=== PATIENT | male | born 1995 | race Caucasian/White ===

== ENCOUNTER 2016-06-13 12:30 | Inpatient (IN) | payer OTHER ==
[~2016-06-13] VITALS: Ht 190.5 cm; Wt 108.9 kg
[2016-06-15 18:20] LABS: *AMPHETAMINE, URINE NEGATIVE (NEGATIVE); *BARBITURATE, URINE NEGATIVE (NEGATIVE); *CANNABINOID, URINE POSITIVE (NEGATIVE); *COCCAINE, URINE POSITIVE (NEGATIVE); *OPIATE, URINE NEGATIVE (NEGATIVE); *PHENCYCLIDINE SCREEN,URINE NEGATIVE (NEGATIVE)
[2016-06-15 18:31] VITALS: BP 126/79
[2016-06-15] MEDS ORDERED: DIAZEPAM 10 MG TABLET PO STA (18:32)
[2016-06-15] MEDS ORDERED: CLONIDINE HCL 0.1 MG TABLET PO PRN (18:45)
[2016-06-15] MEDS ORDERED: MAG HYDROX/AL HYDROX/SIMETH 30 ML LIQUID UDC PO PRN (18:45)
[2016-06-15] MEDS ORDERED: ONDANSETRON 4 MG/2 ML VIAL IM PRN (18:45)
[2016-06-15] MEDS ORDERED: DICYCLOMINE HCL 20 MG TABLET PO PRN (18:45)
[2016-06-15] MEDS ORDERED: LORAZEPAM 2 MG/1 ML VIAL IM PRN (18:45)
[2016-06-15] MEDS ORDERED: MAGNESIUM HYDROXIDE 30 ML LIQUID UDC PO PRN (18:45)
[2016-06-15] MEDS ORDERED: IBUPROFEN 600 MG TABLET PO PRN (18:45)
[2016-06-15] MEDS ORDERED: LOPERAMIDE HCL 2 MG CAPSULE PO PRN ×2 (18:45)
[2016-06-15] MEDS ORDERED: DIAZEPAM 10 MG TABLET PO PRN ×4 (18:45→19:45)
[2016-06-15] MEDS ORDERED: HYDROXYZINE PAMOATE 25 MG CAPSULE PO PRN (18:45)
[2016-06-15] MEDS ORDERED: diphenhydrAMINE 50 MG CAPSULE PO PRN (18:45)
[2016-06-15] MEDS ORDERED: ONDANSETRON ODT 4 MG TAB.RAPDIS SL PRN (18:45)
[2016-06-15] MEDS ORDERED: DIAZEPAM 5 MG TABLET PO PRN ×2 (18:45→19:45)
[2016-06-15 20:00] VITALS: BP 128/79
[2016-06-15] MEDS ORDERED: DIAZEPAM 10 MG TABLET PO ONE (20:00)
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
[2016-06-15] MEDS ORDERED: BUPRENORPHINE HCL 2 MG TAB.SUBL SL PRN (20:15)
[2016-06-15] MEDS ORDERED: DIAZEPAM 10 MG TABLET ONE ×2 (20:15→23:31)
[2016-06-15] MEDS ORDERED: METHOCARBAMOL 750 MG TABLET PO PRN (20:15)
--- NOTE | 2016-06-15 20:17 | NUR ---
One Time Valium 20mg x1 CIWA 16 Pt presents with nausea, visible tremors, sweat/clammy skin noted, runny nose, agitation, reports pin/needles sensations, reports sensitivity to light and light headedness. Valium 20mg x1 administered as ordered. Safety measures in place, sitter at bedside, will continue to monitor.
[2016-06-15 20:25] LABS: BASOPHILS % (AUTO) 0.5 % (0.0-2.0); EOSINOPHILS # (AUTO) 0.3 K/uL (0.0-0.7); EOSINOPHILS % (AUTO) 4.1 % (0.0-7.0); HEMATOCRIT 42.7 % (40.0-50.0); HEMOGLOBIN 14.1 g/dL (14.0-18.0); LYMPHOCYTES # (AUTO) 2.7 K/uL (0.8-4.8); LYMPHOCYTES % (AUTO) 42.1 % (20.5-51.5); MEAN CORPUSCULAR HEMOGLOBIN 28.3 uug (27.0-31.0); MEAN CORPUSCULAR HGB CONC 33 g/dL (32.0-37.0); MEAN CORPUSCULAR VOLUME 85.9 fL (82.0-92.0); MONOCYTES # (AUTO) 0.5 K/uL (0.1-1.30); MONOCYTES % (AUTO) 7.1 % (0.0-11.0); NEUTROPHILS % (AUTO) 46.2 % (38.5-71.5); PLATELET COUNT (AUTO) 193 K/uL (150-450); RED BLOOD CELL COUNT(AUTO) 4.97 MIL/uL (4.70-6.10); RED CELL DISTRIBUTION WIDTH 12.1 % (11.5-14.5); WHITE BLOOD COUNT (AUTO) 6.5 K/uL (4.0-11.2)
[2016-06-15] MEDS ORDERED: THIAMINE HCL 200 MG/2 ML VIAL IM ONE (20:30)
[2016-06-15 20:35] LABS: ALANINE AMINOTRANSFERASE 18 U/L (16-63); ALBUMIN 3.9 g/dL (3.4-5.0); ALKALINE PHOSPHATASE 42 U/L (50-136); ASPARTATE AMINOTRANSFERASE 10 U/L (15-37); BILIRUBIN,TOTAL 0.5 mg/dL (0.2-1.0); CALCIUM 8.7 mg/dL (8.5-10.1); CARBON DIOXIDE 31 mmol/L (21-32); CHLORIDE 107 mmol/L (98-107); CREATININE 1.2 mg/dL (0.6-1.3); GFR 76 mL/min (>60); GLUCOSE 92 mg/dL (74-106); MAGNESIUM 1.9 mg/dL (1.8-2.4); POTASSIUM 3.7 mmol/L (3.5-5.1); SODIUM SERUM 143 mmol/L (136-145); TOTAL PROTEIN, SERUM 6.5 g/dL (6.4-8.2); UREA NITROGEN, BLOOD 18 mg/dL (7-18)
[2016-06-15] MEDS ORDERED: PREGABALIN 25 MG CAPSULE ONE (20:41)
[2016-06-15 20:46] LABS: THYROID STIMULATING HORMONE 1.446 mIU/mL (0.358-3.740)
[2016-06-15 20:57] LABS: ETHANOL < 3 MG/DL (0-0)
[2016-06-15] MEDS ORDERED: PREGABALIN 100 MG CAPSULE PO SCH (21:00)
[2016-06-15] MEDS ORDERED: GABAPENTIN 300 MG CAPSULE PO SCH (21:00)
[2016-06-15 21:06] LABS: HIV-1 p24 ANTIGEN NON REACTIVE (NONREACTIVE); HIV-1/2 ANTIBODY NON REACTIVE (NONREACTIVE)
--- NOTE | 2016-06-15 21:17 | NUR ---
Reassessment of One time - Valium 20mg x1 Upon reassessment, pt states, I still have aches all over by my body. Skin remains sweaty/clammy. Pt states, I just want to go smoke. Safety measures in place, Sitter with pt, Will continue to monitor.
--- NOTE | 2016-06-15 21:45 | NUR ---
LYRICA 150mg Lyrica 150mg ordered (1.5 capsules). Unable to waste half of a capsule, Dr. Tompkins notified. ordered to use 2 capsules of 100mg for 200mg total. Administered as ordered.
--- NOTE | 2016-06-15 23:25 | NUR ---
PRN VALIUM 20MG & SUBUTEX 4MG CIWA 17, COWS 14 Pt presents with muscle aches, visible tremors, sensitivity to light, runny nose/tearing, pin/needles sensations, agitation, skin noted to be flushed/clammy. Valium 20mg PRN and Subutex 4mg PRN administered. Safety measures in place, sitter at bedside, Will continue to monitor.
[2016-06-15] MEDS ORDERED: BUPRENORPHINE HCL 2 MG TAB.SUBL SL ONE (23:32)
[2016-06-16] VITALS: BP 120/73
--- NOTE | 2016-06-16 | NUR ---
Vital Signs BP 120/73, pulse 86, SpO2 100%, respirations 17, temp 97.7, no reports of pain CIWA/COWS assessment deferred d/t pt sleeping, to assess while pt is awake as ordered. Safety measures in place, sitter at bedside. Will continue to monitor.
--- NOTE | 2016-06-16 00:25 | NUR ---
PRN VALIUM 20MG & SUBUTEX 4MG Reassessment Assessment of COWS/CIWA deferred d/t pt sleeping, to assess while pt is awake as ordered. Respirations unlabored, Sitter at bed side, Safety measures in place, Will continue to monitor.
[2016-06-16] MEDS ORDERED: ALPR2TAB7 PO (03:12)
[2016-06-16] MEDS ORDERED: TRAZ-147 PO (03:12)
[2016-06-16] MEDS ORDERED: ALBU18HF2 IH (03:12)
[2016-06-16 04:00] VITALS: BP 105/52
--- NOTE | 2016-06-16 04:00 | NUR ---
Vital Signs BP 105/52, pulse 69, SpO2 100%, respirations 16, temp 98, no reports of pain CIWA/COWS assessment deferred d/t pt sleeping, to assess while pt is awake as ordered. Safety measures in place, sitter at bedside. Will continue to monitor.
--- NOTE | 2016-06-16 07:00 | NUR ---
End of Shift Pt is a 21 year old male admitted on 06/15/2016 for ETOH/benzo/opiate dependence, placed on 7 day Valium and 7 day Subutex taper. Pt reported using Catina 750ml/daily, Xanax 20mg/daily, Klonopin 10mg/daily, Suboxone SL 16mg/daily, Cocaine 3-5g/daily via smoke/injection, and Marijuana 7g/daily via smoke. Pt is on 1:1 d/t high risk of seizures. During shift, Valium 20mg x1 administered at 2017. At 2324, pt presented with muscle aches, visible tremors, sensitivity to light, runny nose/tearing, pin/needles sensations, agitation, skin noted to be flushed/clammy - Valium 20mg PRN and Subutex 4mg administered d/t CIWA 17 and COWS 14. Upon reassessment, pt was sleeping to assess while pt is awake. Pt refused Vitamin B1 inj, No seizure activity during shift, VS stable, Valium and Subutex tapers scheduled to be started today. Pt slept for 6 hours, intake of 1091 ml PO and voids x3. Safety measures in place, call light within reach, side rails up x2, bed locked and in low position. Endorsed to day shift nurse.
--- NOTE | 2016-06-16 07:55 | NUR ---
START OF SHIFT: RECEIVED PT A/ O X 4. HE C/O RESTLESSNESS, ANXIETY, FATIGUE,MILD NAUSEA AND IRRITABILITY. HE C/O BODY ACHES AND STATES HE SLEPT RESTLESS 6 HRS LAST NIGHT. VALIUM/SUBUTEX TAPER IN PROGRESS. ENCOURAGED INCREASED FLUIDS. SZ PRECAUTIONS NOTED. 1:1 SITTER AT BEDSIDE. WILL CONTINUE TO MONITOR AND MANAGE S/S OF WD.
[2016-06-16 08:00] VITALS: BP 121/82
[2016-06-16] MEDS ORDERED: TUBERCULIN,PURIF.PROT.DERIV. 5 TU/0.1 ML TEST ID ONE (09:00)
[2016-06-16] MEDS ORDERED: 5 DAY TAPER BUPRENORPHINE -SERENITY PROTOCOL SL PRN (09:00)
[2016-06-16] MEDS ORDERED: DIAZEPAM 10 MG TABLET PO SCH (09:00)
[2016-06-16] MEDS: FOLIC ACID 1 MG TABLET PO SCH (09:44)
[2016-06-16] MEDS: THIAMINE HCL 100 MG TABLET PO SCH (09:44)
[2016-06-16] MEDS: MULTIVITAMINS,THERAPEUTIC TABLET PO SCH (09:44)
[2016-06-16] MEDS: DIAZEPAM 10 MG TABLET PO SCH ×4 (09:45→21:02)
[2016-06-16] MEDS: BUPRENORPHINE HCL 2 MG TAB.SUBL SL SCH ×4 (09:46→21:02)
[2016-06-16 12:00] VITALS: BP 125/86
[2016-06-16] MEDS ORDERED: ALBUTEROL SULFATE 8 GM HFA.AER.AD IH PRN (12:45)
[2016-06-16] MEDS ORDERED: PATIENT MAY USE OWN MED- MD OK INH PRN (13:30)
[2016-06-16] MEDS ORDERED: PREGABALIN 25 MG CAPSULE PO SCH (15:00)
[2016-06-16] MEDS: PREGABALIN 100 MG CAPSULE PO SCH ×2 (15:08→21:02)
[2016-06-16 16:00] VITALS: BP 112/60
[2016-06-16] MEDS: ACETAMINOPHEN 325 MG TABLET PO PRN (17:05)
[2016-06-16] MEDS: MIRALAX 17 GM POWD.PACK PO PRN (17:06)
[2016-06-16] MEDS: BACLOFEN 20 MG TABLET PO PRN (17:29)
--- NOTE | 2016-06-16 17:33 | NUR ---
PRN MIRALAX,TYLENOL AND BACLOFEN GIVEN FOR REPORTED H/A 5/10 ON SCALE,BODY ACHES AND CONSTIPATION X 2 DAYS. WILL MONITOR EFFECTIVENESS.
--- NOTE | 2016-06-16 18:05 | NUR ---
PT STATES PRN BACLOFEN,AND TYLENOL EFFECTIVE FOR BODY ACHES. HE STATES HE IS STILL CONSTIPATED.
--- NOTE | 2016-06-16 19:19 | NUR ---
END OF SHIFT: PT CONTINUES ON EXTENDED VALIUM/SUBUTEX TAPER. HE C/O BACK PAIN,BODY ACHES, CHILLS,SWEATS,RESTLESSNESS, ANXIETY AND IRRITABILITY THIS AM. LAST COWS 5 CIWA 3. HE STATES DETOX MEDS ARE EFFECTIVE. PRN TYLENOL,MIRALAX AND BACLOFEN GIVEN FOR BODY ACHES AND REPORTED CONSTIPATION X 2 DAYS. TYLENOL AND BACLOFEN EFFECTIVE. HE IS ON 1:1 FOR SAFETY. SZ PRECAUTIONS NOTED. WILL PASS SHIFT REPORT TO ONCOMING NIGHT NURSE.
--- NOTE | 2016-06-16 19:30 | NUR ---
START OF SHIFT NOTE Received report from day shift nurse. Pt is 21 y o male, admitted on 06/15/16 for etoh (rojelio 750 ml daily), Xanax (20 mg daily), Klonopin (10 mg daily), Suboxone (16 mg daily), cocaine (3-5 g daily), marijuana (7g daily) dependence. Pt is on 7 day Valium, 7 day Subutex taper both started 06/16/16. PMH of insomnia, PTSD, generalized anxiety disorder, social anxiety, panic disorder, lower back pain, seizure r/t withdrawal. Pt is on 1:1 r/ seizure episode 06/11/16. Pt aaox4, in bed, reports anxiety, chills, runny nose, stomach cramps, body aches 5/10. No tremors noted, pt denies tingling. RR unlabored, lung sounds clear bilat. Heart rate regular. Bowel sounds active x 4, pt denies n/v. Pt denies urinary difficulties. Pt is full code, regular diet, allergic to PCN. Fall and seizure precautions in place. Side rails up x 2, call light within reach, bed locked in lowest position. Will continue with plan of care.
[2016-06-16 20:00] VITALS: BP 122/75
[2016-06-16] MEDS: TRAZODONE 100 MG TABLET PO SCH (21:00)
--- NOTE | 2016-06-16 21:00 | NUR ---
TRAZODONE REFUSED Pt refused scheduled trazodone, states "I don't need to take it, i makes me sleeping all day". Risks and benefits explained, offered medication x 3, but pt still refused.
[2016-06-17] VITALS: BP 127/70
--- NOTE | 2016-06-17 04:00 | NUR ---
VS REFUSED, CIWA/COWS DEFERRED Pt awakened for VS assessment, refused vials taken, explained about importance of VS assessment, pt verbalized understanding but still refused assessment. RR unlabored at 16 breaths per minute; CIWA/COWS deferred per MD order "q4 h while awake Addendum: 06/17/16 at 0534 by MERLYN MUHAMMAD RN Amended: Links added.
--- NOTE | 2016-06-17 07:27 | NUR ---
END OF SHIFT NOTE Pt is 21 y o male, admitted on 06/15/16 for etoh (rojelio 750 ml daily), Xanax (20 mg daily), Klonopin (10 mg daily), Suboxone (16 mg daily), cocaine (3-5 g daily), marijuana (7g daily) dependence. Pt is on day 2 of 7 day Valium, 7 day Subutex taper both started 06/16/16. Pt was cooperative throughout the shift. No prn medications were given, pt refused scheduled Trazodone d/t "feeling to drowsy after Trazodone and nightmares". Withdrawal s/s included body aches, stomach cramps, sweats, chills, runny nose. COWS score ranged from 7 to 3,CIWA scores ranged from 3 to 2; Last COWS = 3, CIWA = 2 at 0000. VSS. Pt slept for 5 hrs. Pt is full code, regular diet, allergic to PCN. F. PMH of insomnia, PTSD, generalized anxiety disorder, social anxiety, panic disorder, lower back pain, seizure r/t withdrawal. Pt is on 1:1 r/t seizure precautions. Fall and seizure precautions in place. Report endorsed to day shift nurse.
--- NOTE | 2016-06-17 07:30 | NUR ---
start of shift note: received pt from central services tech nurse, pt is in stable condition at this time no s/s of pain or discomfort. pt is sleeping but able to arouse. pt remains on 1:1 for seizure precautions. [facility]/BENZO/OPIATE withdrawal/dependence. pt is on a 7 day valium taper and 7 day subutex taper. pt without A/R to medications. will encourage pt to join group activities and therapy sessions throughout the shift
[2016-06-17] MEDS ORDERED: DIAZEPAM 10 MG TABLET PO SCH (09:00)
[2016-06-17 09:36] VITALS: BP 129/69
[2016-06-17] MEDS: MULTIVITAMINS,THERAPEUTIC TABLET PO SCH (09:42)
[2016-06-17] MEDS: PREGABALIN 100 MG CAPSULE PO SCH ×3 (09:42→21:34)
[2016-06-17] MEDS: BUPRENORPHINE HCL 2 MG TAB.SUBL SL SCH ×3 (09:42→21:36)
[2016-06-17] MEDS: THIAMINE HCL 100 MG TABLET PO SCH (09:43)
[2016-06-17] MEDS: DIAZEPAM 10 MG TABLET PO SCH ×3 (09:43→21:34)
[2016-06-17] MEDS: FOLIC ACID 1 MG TABLET PO SCH (09:43)
--- NOTE | 2016-06-17 09:53 | NUR ---
PRN administration: pt with complaints of constipation PRN MOM was administered will monitor if effective
[2016-06-17] MEDS: MIRALAX 17 GM POWD.PACK PO PRN (11:34)
--- NOTE | 2016-06-17 11:34 | NUR ---
PRN administration: pt with complaints of constipation, miralax was administered will re-assess if effective Addendum: 06/17/16 at 1529 by BABITA DESIR RN MOM from [id number] was ineffective, miralax was then administered
[2016-06-17] MEDS: DOCUSATE SODIUM 250 MG CAPSULE PO SCH (12:56)
--- NOTE | 2016-06-17 13:00 | NUR ---
PRN REASSESSMENT: PT STATES HE HAS NOT MADE A BOWEL MOVEMENT. OFFERED MULTIPLE ALTERNATIVE MEDICATIONS PT VERBALIZED HE WOULD TAKE THE OTHER OPTIONS LATER TONIGHT.
[2016-06-17] MEDS ORDERED: BISACODYL 10 MG SUPP.RECT RC PRN (13:15)
[2016-06-17] MEDS ORDERED: MAGNESIUM CITRATE 296 ML BOTTLE PO PRN (13:15)
[2016-06-17] MEDS ORDERED: BISACODYL 5 MG TABLET.DR PO PRN (13:15)
[2016-06-17] MEDS ORDERED: FLEET ENEMA 133 ML BOTTLE RC PRN (13:15)
[2016-06-17 13:35] VITALS: BP 147/86
[2016-06-17] MEDS: BACLOFEN 20 MG TABLET PO PRN ×2 (14:25→21:34)
--- NOTE | 2016-06-17 14:25 | NUR ---
PRN ADMINISTRATION: PT WITH COMPLAINTS OF GENERALIZED BODY PAIN, PT VERBALIZES PAIN SCALE 8/10
--- NOTE | 2016-06-17 15:15 | NUR ---
PRN RE-ASSESSMENT: BACLOFEN WAS EFFECTIVE PAIN SCALE 3/10 AT THIS TIME
[2016-06-17] MEDS: ACETAMINOPHEN 325 MG TABLET PO PRN (16:31)
--- NOTE | 2016-06-17 16:45 | NUR ---
PRN ADMINISTRATION: PT WITH COMPLAINTS OF A HEADACHE PAIN SCALE 7/10 PRN TYLENOL GIVEN
[2016-06-17 17:04] VITALS: BP 136/85
--- NOTE | 2016-06-17 17:15 | NUR ---
PRN RE-ASSESSMENT: TYLENOL WAS EFFECTIVE, PT STATED PT'S HEADACHE PAIN IS 2/10 AT THIS TIME
--- NOTE | 2016-06-17 19:07 | NUR ---
END OF SHIFT NOTE: PT IS ALERT AND ORIENTED AND IN STABLE CONDITION AT THIS TIME, PT IS ADMITTED [facility]TOH/BENZO/OPIATE WITHDRAWAL/DEPENDENCE. PT REMAINS ON 1:1 FOR SEIZURE PRECAUTIONS. NO SEIZURE ACTIVITY THROUGHOUT THE SHIFT. PT WITH COMPLAINTS OF CONSTIPATION BUT PRN MEDICATION WERE INFECTIVE. PT STATES HE WILL TRY SUPPOSITORY OR ENEMA TONIGHT BEFORE BED. PT TOLERATED TAPER MEDICATIONS WELL. PT'S LAST CIWA 1 AND COWS 4. WILL ENDORSE PT TO TURRET LATHE TENDER NURSE
--- NOTE | 2016-06-17 19:50 | NUR ---
START OF SHIFT NOTE Received report from day shift nurse. Pt is 21 y o male, admitted on 06/15/16 for ETOH (rojelio 750 mg daily), Xanax (20 mg daily), klonopin (10 mg daily), Suboxone (16 mg daily), cocaine (3-5 g daily), marijuana dependence. Pt is on 7 day valium, 7 day Subutex tapers started 06/16/16. Pt has PMH of insomnia, PTSD, generalized anxiety, social anxiety, panic disorder, lower back pain, withdrawal seizures. Pt put of fall and seizure precautions, Pt is on 1;1 for seizure precaution. Pt in room ,aaox4. Pt reports mild anxiety, sweats, chills, body aches 08/17. Pt reports taking taper medications help with management of withdrawal s/s . RR unlabored, heart rate regular. Last BM taoday 06/17/16, pt deeis n/v/stomach cramps. No urinary difficulties reported. Pt full code, regular diet, NKA. Side rails up x 2, call light within reach, bed locked in lowest position. Will continue with plan of care. Addendum: 06/18/16 at 0104 by MERLYN MUHAMMAD RN pt allergic to PCN
[2016-06-17 20:00] VITALS: BP 132/74
[2016-06-17] MEDS: TRAZODONE 100 MG TABLET PO SCH (21:00)
--- NOTE | 2016-06-17 21:20 | NUR ---
TRAZODONE REFUSED Pt refused scheduled trazodone, states "I don't need to take it, i makes me sleeping all day and gives me nightmares". Risks and benefits explained, offered medication x 3, but pt still refused.
--- NOTE | 2016-06-17 21:35 | NUR ---
PRN BACLOFEN Pt c/o body aches 08/17, administered prn Baclofen prn PO as ordered
--- NOTE | 2016-06-17 22:30 | NUR ---
REASSESSMENT pT STATES PAIN SUBSIDED. SAFETY PRECAUTIONS IN PLACE, PT RESTING IN BED QUIETLY
[2016-06-18] VITALS: BP 138/71
[2016-06-18 03:06] LABS: HCV AB <0.1 s/co ratio (0.0-0.9); HEPATITIS B CORE AB, IgM Negative (Negative); HEPATITIS B SURFACE AG Negative (Negative)
--- NOTE | 2016-06-18 04:00 | NUR ---
VS REFUSED, CIWA/COWS DEFERRED Pt refused VS assessment, turned away and stated "i want to sleep", importance of VS assessment emphasized, but pt still refused. CIWA/COWS deferred according to MD order "q4 hr while awake" Addendum: 06/18/16 at 0534 by MERYLN MUHAMMAD RN Amended: Links added.
--- NOTE | 2016-06-18 07:30 | NUR ---
Start of shift note; Received report from night nurse. Patient is AOX4. Patient is a 21 y/o male admitted on 06/15/16 for ETOH/Benzo/Suboxone/Cocaine dependence. Patient reported history of insomnia, PTSD, anxiety disorder, Seizures due to withdrawal last episode on 06/11/16, panic disorder. patient is allergic to PCN, regular diet, on full code status. Patient was placed on a 7 day Valium taper and 7 day Subutex taper, no adverse reactions noted. Skin is intact. Patient is on 1:1 supervision for safety. Patient is on fall and seizure precaution. All safety measures secured. Will continue to monitor patient.
--- NOTE | 2016-06-18 07:31 | NUR ---
END OF SHIFT NOTE Pt is 21 y o male, admitted on 06/15/16 for ETOH (rojelio 750 mg daily), Xanax (20 mg daily), klonopin (10 mg daily), Suboxone (16 mg daily), cocaine (3-5 g daily), marijuana dependence. Pt is on day 3 of 7 day valium, 7 day Subutex tapers started 06/16/16. Pt had withdrawal s/s of anxiety, sweats, chills, body aches 6/10. Pt received prn Baclofen at 2135 for body aches 6/10, was effective. Last CIWA 1, COWS 4 at 0000; pt refused assessment at 0400. Pt refused 2100 trazodone, slept for 4 hrs. Pt has PMH of insomnia, PTSD, generalized anxiety, social anxiety, panic disorder, lower back pain, withdrawal seizures. Pt put of fall and seizure precautions, Pt is on 1;1 for seizure precaution. Pt full code, regular diet, allergic to PCN. Report endorsed to day shift nurse.
[2016-06-18 08:00] VITALS: BP 123/77
[2016-06-18] MEDS ORDERED: BUPRENORPHINE HCL 2 MG TAB.SUBL SL SCH (09:00)
[2016-06-18] MEDS ORDERED: DIAZEPAM 5 MG TABLET PO SCH (09:00)
[2016-06-18] MEDS: MULTIVITAMINS,THERAPEUTIC TABLET PO SCH (09:35)
[2016-06-18] MEDS: FOLIC ACID 1 MG TABLET PO SCH (09:36)
[2016-06-18] MEDS: THIAMINE HCL 100 MG TABLET PO SCH (09:36)
[2016-06-18] MEDS: DOCUSATE SODIUM 250 MG CAPSULE PO SCH (09:36)
[2016-06-18] MEDS: PREGABALIN 100 MG CAPSULE PO SCH ×3 (09:36→20:12)
[2016-06-18] MEDS: DIAZEPAM 10 MG TABLET PO SCH ×4 (09:36→20:12)
[2016-06-18 12:00] VITALS: BP 130/81
[2016-06-18] MEDS: BACLOFEN 20 MG TABLET PO PRN (12:34)
--- NOTE | 2016-06-18 12:34 | NUR ---
PRN medication; PRN Baclofen 20mg PO given to patient for muscle spasms. Will continue to monitor for effectiveness of medication.
--- NOTE | 2016-06-18 13:34 | NUR ---
Re-assessment; Patient denies muscle spasms at this time. PRN medication is effective.
[2016-06-18] MEDS: BUPRENORPHINE HCL 2 MG TAB.SUBL SL SCH ×2 (14:54→20:18)
[2016-06-18 16:00] VITALS: BP 130/87
[2016-06-18] MEDS ORDERED: diphenhydrAMINE 50 MG CAPSULE PO PRN (16:30)
--- NOTE | 2016-06-18 18:38 | NUR ---
End of shift note; Patient is AOX4. Patient is AOX4. Patient is a 21 y/o male admitted on 06/15/16 for ETOH/Benzo/Suboxone/Cocaine dependence. Patient reported history of insomnia, PTSD, anxiety disorder, Seizures due to withdrawal last episode on 06/11/16, panic disorder. patient is allergic to PCN, regular diet, on full code status. Patient was placed on a 7 day Valium taper and 7 day Subutex taper, no adverse reactions noted. Skin is intact. Patient is on 1:1 supervision for safety. Patient is on fall and seizure precaution. Patient's last COWS is 5 and last CIWA is 3 at 1600. Patient remained compliant with treatment plan. Medications were effective in reducing withdrawal symptoms. All safety measures secured. Met all needs.
[2016-06-18 20:00] VITALS: BP 138/97
--- NOTE | 2016-06-18 20:00 | NUR ---
Start of Shift Pt is a 21 year old male admitted for ETOH/benzo/opiate dependence, placed on 7 day Valium and 7 day Subutex taper. Reported using Catina 750ml/daily, Xanax 20mg/daily, Klonopin 10mg/daily, Suboxone SL 16mg/daily, Cocaine 3-5g/daily via smoke/injection, and Marijuana 7g/daily via smoke. Pt is on 1:1 d/t risk of seizures. Allergic to PCN, fall/seizure precautions, regular diet and full code. Upon assessment, pt reports anxiety, runny nose, muscle aches 5/10, restlessness. Respirations even/unlabored, denies n/v/d, denies SOB/chest pain. Will administered schedule medications. BP 138/97, pulse 110, SpO2 99%, respirations 18, temp 98. Safety measures in place, Will continue to monitor.
[2016-06-18] MEDS: BACLOFEN 20 MG TABLET PO SCH (20:12)
[2016-06-18] MEDS: TRAZODONE 100 MG TABLET PO SCH (20:17)
--- NOTE | 2016-06-18 20:17 | NUR ---
Trazodone Refused Pt refused scheduled Trazodone, states "I don't want to take it, it gave me nightmares last nigh ". Risks and benefits explained, offered medication x 3, pt still refused.
[2016-06-19] VITALS: BP 143/99
--- NOTE | 2016-06-19 00:40 | NUR ---
PRN Administration Pt requested aid to help him sleep, Benadryl 50mg PRN administered. Safety measures in place, ENGINE TESTING SUPERVISOR at beside. Will continue to monitor.
--- NOTE | 2016-06-19 01:56 | NUR ---
PRN Reassessment Upon reassessment, pt is sleeping, medication effective. respirations even and unlabored. Safety measures in place, FACILITY MAINTENANCE WORKER at bedside, Will continue to monitor.
[2016-06-19 04:00] VITALS: BP 112/68
--- NOTE | 2016-06-19 04:00 | NUR ---
Vital Signs BP 112/68, pulse 82, SpO2 99%, respirations 17, temp 98, no reports of pain COWS/CIWA assessment deferred d/t pt sleeping - to assess while pt is awake as ordered Safety measures in place, Will continue to monitor
--- NOTE | 2016-06-19 07:00 | NUR ---
End of Shift Pt is a 21 year old male admitted for ETOH/benzo/opiate dependence, placed on 7 day Valium and 7 day Subutex taper. Reported using Catina 750ml/daily, Xanax 20mg/daily, Klonopin 10mg/daily, Suboxone SL 16mg/daily, Cocaine 3-5g/daily via smoke/injection, and Marijuana 7g/daily via smoke. Pt is on 1:1 d/t risk of seizures. Allergic to PCN, fall/seizure precautions, regular diet and full code. During shift, pt presented with anxiety, runny nose, muscle aches, restlessness scheduled taper medications administered, latest CIWA 4 and COWS 6. Pt refused scheduled Trazodone, stated "I dont want to take it, it gave me nightmares last night ". Risks and benefits explained, offered medication x 3, pt still refused. Pt requested Benadryl 50mg PRN for sleeping, administered and effective. Pt slept for 4 hours, intake of 1000 ml PO and voids x3. Safety measures in place, Endorsed to day shift nurse.
--- NOTE | 2016-06-19 07:08 | NUR ---
Start of Shift Endorsement received from nightshift nurse. Pt is a 21 y/o male admitted for Opiate and Benzo dependence. Pt has been placed on a 7 day Valium and 7 day Subutex taper. Pt is moderately withdrawing at this time AEB COWS 6 and CIWA 4 at midnight. Pt is on 1:1 at this time for safety reasons. Pt is tolerating the taper well. Pt received PRN Benadryl and reports sleeping 4.5 hours during the night. PT is alert and oriented x4. Pt is in STABLE condition at this time. Remains compliant with medication and diet regimen. All needs have been met, All safety measures in place per hospital policy. Bed in lowest position, side rails up x2, call-light within reach. Will continue to monitor
[2016-06-19 08:00] VITALS: BP 116/70
[2016-06-19] MEDS ORDERED: BUPRENORPHINE HCL 2 MG TAB.SUBL SL SCH (09:00)
[2016-06-19] MEDS ORDERED: DIAZEPAM 10 MG TABLET PO SCH (09:00)
[2016-06-19] MEDS ORDERED: DIAZEPAM 5 MG TABLET PO SCH (09:00)
[2016-06-19] MEDS: BACLOFEN 20 MG TABLET PO SCH (09:07)
[2016-06-19] MEDS: PREGABALIN 100 MG CAPSULE PO SCH (09:07)
[2016-06-19] MEDS: FOLIC ACID 1 MG TABLET PO SCH (09:07)
[2016-06-19] MEDS: DOCUSATE SODIUM 250 MG CAPSULE PO SCH (09:08)
[2016-06-19] MEDS: MULTIVITAMINS,THERAPEUTIC TABLET PO SCH (09:08)
[2016-06-19] MEDS: THIAMINE HCL 100 MG TABLET PO SCH (09:08)
--- NOTE | 2016-06-19 12:30 | NUR ---
Room Restriction Pt has been placed on room restriction per Dr. Tompkins for safety reasons until farther evaluation.
--- NOTE | 2016-06-19 13:02 | NUR ---
ENDORSE Pt endorsed to me.
--- NOTE | 2016-06-19 13:02 | NUR ---
Transfer of Care Endorsed pt to Rafael Tavera RN
[2016-06-19] MEDS ORDERED: OLANZAPINE 10 MG VIAL IM ONE (13:30)
--- NOTE | 2016-06-19 13:40 | NUR ---
NSG ENTRY Pt on 1:1 sitter in room. Pt appeared more threatening, intrusive, and getting really close to sitter. Dr. Tompkins made aware with new order for 2:1 sitter for safety of staff. Pt is yelling at staff, " get me my nurse! god dammnit!I need my meds! I need my meds! I need haldol!". Pt pacing and yelling in room. Pt not following redirection. Pt states, " I'm going to get nuts!". Pt offered visttaril po prn per MD order, but pt refused and yelled at staff, "Vistaril! I need haldol! I need a shot right now damnit! I need a shot! I need a shot! I need a shot!". Pt very repetative and does not allow for anyone to talk or respond. DANIELLA was present in room attempting to talk to pt, but pt just continues to yell at DON. etl programmer was in room attempting to talk to pt multiple times, but pt continues to yell. Pt not following any directions from anyone. Pt observed yelling at times, then would stop for a few moments, then would continue yelling again. Dr. Tompkins also came to talk to pt , but pt continues to yell. Pt was offered zyprexa IM per MD order, but pt yelled and refused it. Pt continued to yell" zyprexa doesn't do shit for me! I'm agitated. What's zyprexa going to do?". Reva ( director dance) also present in room attempting to talk to pt, but pt continues to yell. Pt yelling " what's with all the people in my room! get the fuck out! Get out now!". Pt refused to lower voice. Pt became even more verbally aggressive with staff and etl programmer. Pt was then administratively discharged because pt was refusing any medical, clinical, and social treatment.
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
--- NOTE | 2016-06-19 13:58 | NUR ---
ADMIN DISCHARGED Pt administratively discharged because pt was refusing medical, clinical, and social treatment. Pt refused to sign AMA form and resources list. Pt educated about the risks and consequences of leaving AMA. VS wnl. Pt deneis any SI. Skin intact. Dr. Tompkins on unit. Pt was given the list of resources. All belongings returned to pt.
[2016-06-19] MEDS ORDERED: CLON0.1T PO (14:45)
[2016-06-19] MEDS ORDERED: PREG200C PO (14:46)
[2016-06-19] MEDS ORDERED: ALPR2TAB2 PO (14:46)
[2016-06-19] MEDS ORDERED: CLON2TAB PO (14:46)
[2016-06-19] MEDS ORDERED: BUPR1FIL3 SL (14:47)
[2016-06-20] MEDS ORDERED: DIAZEPAM 5 MG TABLET PO SCH ×2 (09:00)
[2016-06-20] MEDS ORDERED: BUPRENORPHINE HCL 2 MG TAB.SUBL SL SCH (09:00)
[2016-06-21] MEDS ORDERED: DIAZEPAM 5 MG TABLET PO SCH (09:00)
[2016-06-21] MEDS ORDERED: BUPRENORPHINE HCL 2 MG TAB.SUBL SL SCH (09:00)
[2016-06-22] MEDS ORDERED: DIAZEPAM 5 MG TABLET PO SCH (09:00)
[2016-06-22] MEDS ORDERED: BUPRENORPHINE HCL 2 MG TAB.SUBL SL SCH (09:00)
== END 2016-06-19 13:58 | disposition left against medical advice (07) | DRG 894 ==
LOC: SRC 06-15 17:08
PROVIDERS: ADMIT Internal Medicine; ATTEND Internal Medicine
PROC: HZ2ZZZZ Detoxification Services for Substance Abuse Treatment (ICD-10-PCS; principal; 2016-06-15)
PROC: HZ41ZZZ Group Counseling for Substance Abuse Treatment, Behavioral (ICD-10-PCS; 2016-06-17)
PROC: HZ31ZZZ Individual Counseling for Substance Abuse Treatment, Behavioral (ICD-10-PCS; 2016-06-18)
DX: F10.230 Alcohol dependence with withdrawal, uncomplicated (principal); F14.20 Cocaine dependence, uncomplicated; F11.23 Opioid dependence with withdrawal; Y90.9 Presence of alcohol in blood, level not specified; F13.230 Sedative, hypnotic or anxiolytic dependence with withdrawal, uncomplicated; K59.03 Drug induced constipation; Z82.0 Family history of epilepsy and other diseases of the nervous system; G89.29 Other chronic pain; E11.9 Type 2 diabetes mellitus without complications; F17.210 Nicotine dependence, cigarettes, uncomplicated; F41.1 Generalized anxiety disorder; Z88.0 Allergy status to penicillin; Z91.128 Patient's intentional underdosing of medication regimen for other reason; I10 Essential (primary) hypertension; G47.00 Insomnia, unspecified; F43.10 Post-traumatic stress disorder, unspecified; Z86.69 Personal history of other diseases of the nervous system and sense organs; M54.5 Low back pain
CPT/HCPCS: 36415; 70030-TC; 80307; 80346; 80349; 80353; 83735; 84443; 85025; 86580; 86592; 86705; 86803; 87340; 87806; A4663; G6040-TC; J2358; Q0163

== ENCOUNTER 2016-06-19 14:19 | Emergency (ER) | payer BC, OTHER ==
[~2016-06-19] VITALS: Ht 190.5 cm; Wt 113.4 kg
[~2016-06-19 14:19] MED LIST: ALBU18HF2 IH; ALPR2TAB7 PO; TRAZ-147 PO
[2016-06-19] MEDS ORDERED: CLON0.1T PO (14:45)
[2016-06-19] MEDS ORDERED: ALPR2TAB2 PO (14:46)
[2016-06-19] MEDS ORDERED: CLON2TAB PO (14:46)
[2016-06-19] MEDS ORDERED: PREG200C PO (14:46)
[2016-06-19] MEDS ORDERED: BUPR1FIL3 SL (14:47)
--- NOTE | 2016-06-19 14:50 | NUR ---
Pt c/o being administratively d/c from ETOH detox program and thinks he is going through w/drawl. Pt states he is dizzy, has CP, and feels he is going to have a sz. No distress noted, but pt is extremely anxious.
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
--- NOTE | 2016-06-19 15:21 | NUR ---
I ASKED PATIENT WHY HE LEFT [facility] IF HE WAS THERE FOR DETOX/REHAB. HE STATED HE WANTS TO GET OFF [facility] BUT HE IS "USE TO TAKING HIGH DOSES AND I CANT BE OFF OF THEM". HE STATES HE DID RECEIVE VALIUM TODAY AT [facility] BUT HE STATES HE "WANTS MORE". HE IS AWAKE, ALERT, ORIENTED X4 IN NO DISTRESS EXCEPT FOR ANXIETY AND SOME ANGER. I TRIED TO DE-ESCALATE HIM AND PROVIDE HIM WITH SOME REASSURANCE AND SAFETY BUT HE WOULDNT LISTEN AND KEPT INTERUPTING ME AND DEMANDING XANAX. DR ROBLES AWARE. HE DOES NOT HAVE A CAR HERE. HE STATES HE WILL "GET A RIDE" TO GO BACK HOME.
[2016-06-19 15:37] VITALS: BP 134/70
== END 2016-06-19 15:25 | disposition home or self-care (01) ==
LOC: ER 14:19
DX: F19.10 Other psychoactive substance abuse, uncomplicated (principal); R00.0 Tachycardia, unspecified; Z88.0 Allergy status to penicillin
CPT/HCPCS: 93005; 99283; A4663

== ENCOUNTER 2016-06-19 22:18 | Emergency (ER) | payer BC, OTHER ==
[~2016-06-19] VITALS: Ht 190.5 cm; Wt 113.4 kg
[~2016-06-19 22:18] MED LIST changes: +ALPR2TAB2 PO; +BUPR1FIL3 SL; +CLON0.1T PO; +CLON2TAB PO; +PREG200C PO
--- NOTE | 2016-06-19 22:57 | NUR ---
Patient discharged to home in stable conditon. Written and verbal after care instructions given. Patient verbalizes understanding of instructions.
== END 2016-06-19 22:59 | disposition home or self-care (01) ==
LOC: ER 22:22
DX: Z00.8 Encounter for other general examination (principal); F19.10 Other psychoactive substance abuse, uncomplicated; F17.200 Nicotine dependence, unspecified, uncomplicated; Z88.0 Allergy status to penicillin; Z59.0 Homelessness
CPT/HCPCS: 99281; A4663